=== PATIENT | male | born 1940 | race Caucasian/White ===

== ENCOUNTER 2020-12-11 06:01 | Day surgery (SDC) | payer MEDICARE ==
[2020-12-06 16:14] VITALS: BMI 22.4
[~2020-12-11 06:01] MED LIST: ALPRAZolam 0.25 MG TAB PO PRN; HEPARIN SODIUM,PORCINE 10,000 UNIT in SODIUM CHLORIDE 0.9% 1,000 ML IRRIGATION PRN; HEPARIN SODIUM,PORCINE 2,500 UNIT in SODIUM CHLORIDE 0.9% 250 ML IRRIGATION PRN; SODIUM CHLORIDE 0.9% 1,000 ML in EMPTY BAG 1 BAG IV ONE; ZOLPIDEM 5 MG TAB PO PRN
[2020-12-11] MEDS ORDERED: ALPRAZolam 0.5 MG TAB ONE (06:25)
[2020-12-11] MEDS ORDERED: ASPIRIN 325 MG TAB PO PRN (07:00)
[2020-12-11] MEDS ORDERED: MIDAZOLAM 2 MG/2 ML VIAL IV ONE (08:00)
[2020-12-11] MEDS ORDERED: LIDOCAINE 1% INJ 10MG/ML (20 ML MDV) SQ ONE (08:01)
[2020-12-11] MEDS: HEPARIN SODIUM 1,000 UN/ML (10ML VL) IV ONE ×2 (08:05→08:30)
[2020-12-11] MEDS: fentaNYL (PF) 50 MCG/ML 2 ML AMP IV ONE ×2 (08:08→08:30)
[2020-12-11] MEDS ORDERED: HYDROmorphone 1 MG/ML 1 ML SYRINGE IVP ONE (08:40)
[2020-12-11] MEDS ORDERED: SODIUM CHLORIDE 0.9% 1,000 ML in EMPTY BAG 1 BAG IV SCH (09:15)
[2020-12-11] MEDS ORDERED: NON FORMULARY DRUG (Benralizumab [Fasenra] 30 MG/ML Syringe) SQ SCH (09:15)
[2020-12-11] MEDS ORDERED: CLOPIDOGREL 75 MG TAB PO ONE (09:24)
[2020-12-11] MEDS ORDERED: IOPAMIDOL-250 100ML BTL INTRAARTER ONE (09:24)
[2020-12-11] MEDS ORDERED: hydrALAZINE HCL 20 MG/ML 1 ML VIAL ONE (09:32)
[2020-12-11] MEDS ORDERED: hydrALAZINE HCL 20 MG/ML 1 ML VIAL IVP STA ×2 (09:35→13:03)
[2020-12-11] MEDS ORDERED: HYDROmorphone 1 MG/ML 1 ML SYRINGE ONE (10:02)
[2020-12-11] MEDS ORDERED: HYDROmorphone 1 MG/ML 1 ML SYRINGE IVP STA (10:08)
--- NOTE | 2020-12-11 10:42 | IR ---
Fluoroscopy HISTORY: Pain right leg 12.8 minutes fluoroscopy time supplied to the referring clinician. 336 intraoperative C-arm images d ocument the procedure. See dictated report from cardiology.
[2020-12-11] MEDS ORDERED: MIDAZOLAM 2 MG/2 ML VIAL IV STA (10:55)
--- NOTE | 2020-12-11 17:22 | AN ---
ANGIOGRAPHY REPORT DATE OF SERVICE: 12/11/2020 PERFORMING PHYSICIAN: Darrick Julian MD. PROCEDURE PERFORMED: 1. Atherectomy of the right SFA using the hock device with extraction of significant amount of plaque. 2. Successful stenting of the right SFA using 6 x 60 mm Zilver PTX drug-coated stent with an excellent angiographic results. 3. Intravascular ultrasound (IVUS) of the right SFA. 4. Successful stenting of the right external iliac artery using 8 x 29 mm balloon expandable stent with an excellent angiographic results. 5. Intravascular ultrasound (IVUS) of the right external iliac artery. 6. Right lower extremity angiogram. 7. Left common femoral artery angiogram. 8. Ultrasound-guided access of the left common femoral artery. 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 APPROACH: Left common femoral artery. COMPLICATION: None. LEVEL OF SEDATION: Moderate with sedation length of 74 minutes. PROCEDURE DESCRIPTION: After obtaining an informed consent, the patient was brought to the cardiac lab support technician. The left common femoral artery was cannulated using micropuncture technique and a micropuncture wire passed easily. Then I placed a 70 cm 6-Gambian sheath at the left common femoral artery. I did select the right SFA using 0.035 stiff Glidewire with the backup support of 5- Gambian Omni Flush catheter. Subsequently, the sheath was advanced over the wire and the dilator into the left external iliac artery. I did selective left external iliac artery angiogram before I did balloon angioplasty using 6 mm balloon. Then the sheath was advanced over the dilator and the wire across the lesion into the left common femoral artery. Subsequently, left lower extremity angiogram was performed and identified the lesion at the left SFA. The lesion angiographically was about 70% to 80%. I did intravascular ultrasound which revealed a minimal diameter of 6 mm of the lesion. I did atherectomy of the left SFA using the Hawk device with extraction of significant amount of plaque. Subsequently I did balloon angioplasty using a 5 mm balloon. The following angiogram showed flow-limiting dissection involving the lesion which I decided to cover with a stent so I deployed 6 x 60 mm Zilver PTX drug-coated stent which was dilated using 5 mm balloon with the following angiogram showing excellent angiographic results with good flow across the lesion. Subsequently for the lesion in the left external iliac artery, I did pullback the sheath back and I did deploy the 8 x 29 mm stent. The stent was positioned under fluoroscopy guidance and deployed under fluoroscopic guidance. The following angiogram showed excellent angiographic results. The procedure was completed without any complication. Subsequently, I did exchange my long sheath into short sheath using 0.035 wire and I did selective left common femoral artery angiogram. The procedure was completed without any complication. POSTPROCEDURE MANAGEMENT: 1. Dual anti-platelet therapy. 2. Aggressive cholesterol control. 3. Risk factor modifications. 4. Follow up with the patient. MMODL / IJN: [id number] /
[2020-12-11] MEDS ORDERED: ALBUTEROL NEBULIZED 2.5 MG/3 ML INHALATION PRN (17:39)
[2020-12-11] MEDS ORDERED: HYDROmorphone 0.5 MG/0.5 ML SYRINGE IVP PRN (17:45)
[2020-12-11] MEDS: BUDESONIDE 0.25 MG/2 ML NEBU INHALATION SCH (20:42)
[2020-12-11] MEDS: IPRATROPIUM-ALBUTEROL 3 ML NEB INHALATION SCH (20:46)
[2020-12-12] MEDS: BUDESONIDE 0.25 MG/2 ML NEBU INHALATION SCH (08:22)
[2020-12-12] MEDS: IPRATROPIUM-ALBUTEROL 3 ML NEB INHALATION SCH (08:22)
[2020-12-12] MEDS ORDERED: NON FORMULARY DRUG (Vitamin B Complex [Vitamin B Complex] 1 EACH Capsule) PO SCH (09:00)
[2020-12-12] MEDS ORDERED: DILTIAZEM CD 240 MG CAP.ER.24H PO SCH (09:00)
[2020-12-12] MEDS ORDERED: lisinopriL 20 MG TAB PO SCH (09:00)
[2020-12-12] MEDS ORDERED: MAGNESIUM OXIDE 400 MG TAB PO SCH (09:00)
[2020-12-12] MEDS ORDERED: buPROPion SR 100 MG TABLET.ER PO SCH (09:00)
[2020-12-12] MEDS ORDERED: PRAVASTATIN SODIUM 20 MG TAB PO SCH (09:00)
[2020-12-12] MEDS ORDERED: MONTELUKAST 10 MG TAB PO SCH (09:00)
[2020-12-12] MEDS ORDERED: CLOPIDOGREL 75 MG TAB PO SCH (09:00)
[2020-12-12 09:40] LABS: Basophils % (A) 0 %; Eosinophils % (A) 0 %; HCT 43.3 % (39.0-53.0); HGB 14.6 gm/dL (13.0-17.5); Lymphocytes % (A) 9 %; MCH 30.3 pg (25.0-35.0); MCHC 33.8 g/dL (31.0-37.0); MCV 89.6 fL (80.0-100.0); Mean Platelet Volume 8.1; Monocytes # (A) 0.8 k/uL (0-1.0); Monocytes % (A) 8 %; Neutrophils # (A) 8.8 k/uL (1.3-7.7); Neutrophils % (A) 81 %; Platelet Count 223 k/uL (150-450); RBC 4.83 m/uL (4.30-5.90); RDW 14.5 % (11.5-15.5); WBC 10.8 k/uL (3.8-10.6)
[2020-12-12 10:01] LABS: Calcium 9.4 mg/dL (8.4-10.2); Potassium 4.4 mmol/L (3.5-5.1)
[2020-12-12 10:43] VITALS: RESP 20
--- NOTE | 2020-12-12 11:12 | DS ---
DISCHARGE SUMMARY ADMISSION DATE: December 11, 2020. DISCHARGE DATE: December 12, 2020. BRIEF HISTORY: This is a 79-year-old gentleman who underwent yesterday successful stenting of the right iliac and right SFA with an excellent angiographic results and without any complication from left groin approach. He was seen this morning. The left groin is soft and nontender and without any bruises. He does have good pulses in the right dorsalis pedis artery. The patient is going to be discharged home on dual anti-platelet therapy and I will follow up with the patient next week in the office. MMADAML / IJN: [id number] /
[2020-12-12 12:26] VITALS: BP 129/64; PULSE 94; TEMP 98
== END 2020-12-12 13:38 | disposition home or self-care (01) ==
LOC: CATHCVL 06:01 → 6NMEDSUR 14:05 → 3SCARD 19:22 → CATHCVL 12-12 13:38
PROVIDERS: ATTEND Internal Medicine Interventional Cardiology
DX: I70.263 Atherosclerosis of native arteries of extremities with gangrene, bilateral legs (principal); Z20.822 Contact with and (suspected) exposure to COVID-19; I10 Essential (primary) hypertension; E78.5 Hyperlipidemia, unspecified; Z79.899 Other long term (current) drug therapy; F17.210 Nicotine dependence, cigarettes, uncomplicated
CPT/HCPCS: 37221; 37227; 37252; 37253; 80048; 85025; 87635; C1894 ×3; C1769 ×5; C1725 ×3; C1714; C1753; C2623; C1874; J2250; J0360; S0106; J2001; J3010; J1644; J1170 ×2; Q9966

== ENCOUNTER 2023-04-02 12:09 | Day surgery (SDC) | payer MEDICARE ==
[~2023-04-02 12:09] MED LIST changes: +ASPIRIN 325 MG TAB PO PRN; +HEPARIN SODIUM,PORCINE (1 ML) 2,500 UNIT in SODIUM CHLORIDE 0.9% 250 ML IRRIGATION PRN; -HEPARIN SODIUM,PORCINE 2,500 UNIT in SODIUM CHLORIDE 0.9% 250 ML IRRIGATION PRN
[2023-04-02 12:51] LABS: Basophils % (A) 0 %; Eosinophils # (A) 0.1 k/uL (0-0.7); Eosinophils % (A) 0 %; HCT 49.2 % (39.0-53.0); HGB 16.4 gm/dL (13.0-17.5); Lymphocytes % (A) 5 %; MCH 30.2 pg (25.0-35.0); MCHC 33.4 g/dL (31.0-37.0); MCV 90.4 fL (80.0-100.0); Monocytes # (A) 0.6 k/uL (0-1.0); Monocytes % (A) 4 %; Neutrophils # (A) 15.8 k/uL (1.3-7.7); Neutrophils % (A) 90 %; Platelet Count 279 k/uL (150-450); RBC 5.44 m/uL (4.30-5.90); RDW 14.5 % (11.5-15.5); WBC 17.6 k/uL (3.8-10.6)
[2023-04-02 13:08] LABS: African American GFR (CKD) 82 (>60 ml/min/1.73 sqM); Anion Gap 13 mmol/L; Blood Urea Nitrogen 17 mg/dL (9-20); Calcium 9.8 mg/dL (8.4-10.2); Carbon Dioxide 22 mmol/L (22-30); Chloride 105 mmol/L (98-107); Glucose 139 mg/dL (74-99); Non-African American GFR(CKD) 71 (>60 ml/min/1.73 sqM); Potassium 4.4 mmol/L (3.5-5.1); Sodium 140 mmol/L (137-145)
[2023-04-02] MEDS ORDERED: LIDOCAINE 1% INJ 10MG/ML (20 ML MDV) ONE (13:43)
[2023-04-02] MEDS ORDERED: MIDAZOLAM 2 MG/2 ML VIAL IVP ONE (13:50)
[2023-04-02] MEDS ORDERED: LIDOCAINE 1% INJ 10MG/ML (20 ML MDV) SQ ONE (13:52)
[2023-04-02] MEDS ORDERED: IOPAMIDOL-370 100ML BTL INJ ONE (14:00)
[2023-04-02] MEDS ORDERED: NALOXONE 0.4 MG/ML 1 ML VIAL IVP PRN (14:04)
--- NOTE | 2023-04-02 14:07 | P.PCN ---
Date of Procedure: 04/02/23 Operative Findings: AN ABDOMINAL AORTOGRAM AND BILATERAL LOWER EXTREMITIES RUNOFF PERFORMING PHYSICIAN: Darrick Julian MD PROCEDURE PERFORMED: 1. An abdominal aortogram 2. Bilateral lower extremities runoff 3. Ultrasound-guided access of the right common femoral artery INDICATION: Intermittent claudication COMPLICATION: None LEVEL OF SEDATION: Moderate was sedation length of 10 minutes APPROACH: Right common femoral artery PROCEDURE DESCRIPTION: After obtaining informed consent and explaining the procedure benefits, risks, and complications, the patient was brought to the cardiac optical lab technician. The right groin was prepped and draped in sterile fashion. The right common femoral artery was cannulated using micropuncture technique, under ultrasound guidance. A micropuncture wire was advanced, and the micropuncture sheath was advanced ov er the wire, then the micropuncture sheath was exchanged over an 0.35 wire into a 5-Filipino sheath dilator assembly then the wire and dilator were removed and sheath was flushed. We did an abdominal aortogram and bilateral lower extremities runoff using 5- Filipino pigtail catheter using a power injection. The catheter was initially placed at the level of the renal arteries, and it was pulled into above the bifurcation of the aorta into right and left common iliac arteries. The procedure was completed and there was no complications. SELECTIVE PERIPHERAL ANGIOGRAM: The abdominal aorta: Is angiographically normal The common iliac arteries: Right common iliac artery appeared to have an intermediate disease only. 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
[2023-04-02] MEDS ORDERED: SODIUM CHLORIDE 0.9% 1,000 ML in EMPTY BAG 1 BAG IV SCH (14:15)
[2023-04-03 08:03] VITALS: BP 119/60; PULSE 71; RESP 16; TEMP 98.2
[2023-04-03] MEDS ORDERED: BUDESONIDE 0.25 MG/2 ML NEBU INHALATION PRN (08:21)
[2023-04-03] MEDS ORDERED: ALBUTEROL HFA INHALER INHALATION PRN (08:21)
--- NOTE | 2023-04-03 08:21 | P.DS ---
Providers Attending physician: Darrick Julian Primary care physician: [facility] Course: The patient is an 83-year-old gentleman who underwent yesterday and aortogram with runoff. The patient family requested the patient to stay overnight because he was from [place]. He was seen and evaluated this morning. He is asymptomatic and he is stable. The site looks soft and nontender with no bruises. His WBC is elevated. This is from yesterday. Going to repeat his blood work this morning and if the WBC is within normal limits the patient potentially can be discharged home Plan - Discharge Summary Discharge Rx Participant: No New Discharge Prescriptions: Continue Ipratropium-Albuterol Nebulize [Duoneb 0.5 mg-3 mg/3 ml Soln] 3 ml INHALATION BID Montelukast [Singulair] 10 mg PO DAILY buPROPion HCL [Wellbutrin SR] 200 mg PO DAILY dilTIAZem HCL [Cardizem CD] 240 mg PO DAILY Benralizumab [Fasenra] 30 mg SQ Q60D Pravastatin Sodium [Pravachol] 20 mg PO DAILY Budesonide [Pulmicort] 0.25 mg INHALATION BID PRN PRN Reason: Shortness Of Breath Albuterol Sulfate [Proair Hfa] 1 - 2 puff INHALATION Q6HR PRN PRN Reason: Shortness Of Breath Clopidogrel [Plavix] 75 mg PO DAILY #90 tab Discharge Medication List Albuterol Sulfate [Proair Hfa] 1 - 2 puff INHALATION Q6HR PRN 12/06/20 [History] Benralizumab [Fasenra] 30 mg SQ Q60D 12/06/20 [History] Budesonide [Pulmicort] 0.25 mg INHALATION BID PRN 12/06/20 [History] Ipratropium-Albuterol Nebulize [Duoneb 0.5 mg-3 mg/3 ml Soln] 3 ml INHALATION BID 12/06/20 [History] Montelukast [Singulair] 10 mg PO DAILY 12/06/20 [History] Pravastatin Sodium [Pravachol] 20 mg PO DAILY 12/06/20 [History] buPROPion HCL [Wellbutrin SR] 200 mg PO DAILY 12/06/20 [History] dilTIAZem HCL [Cardizem CD] 240 mg PO DAILY 12/06/20 [History] Clopidogrel [Plavix] 75 mg PO DAILY #90 tab 12/12/20 [Rx] Follow up Appointment(s)/Referral(s): Darrick Julian MD [STAFF PHYSICIAN] - 1 Week (THE OFFICE WILL CALL YOU WITH AN APPOINTMENT DATE AND TIME) Patient Instructions/Handouts: Moderate Sedation (DC), Angiogram (DC) Activity/Diet/Wound Care/Special Instructions: *NO LIFTING, PUSHING, OR PULLING ANYTHING OVER 5 POUNDS FOR 5 DAYS *NO DRIVING FOR 3 DAYS *YOU CAN REMOVE YOUR DRESSING TOMORROW BUT DO NOT SUBMERSE YOUR PUNCTURE SITE IN WATER FOR A FEW DAYS TO PREVENT INFECTION - SO NO TUB BATHS, POOLS, HOT TUBS, DISHES...ETC *ANY SIGNS OF BLEEDING (HARDNESS, SWELLING, OR EXCESSIVE BRUISING) HOLD DIRECT PRESSURE ON YOUR PUNCTURE SITE AND COME TO THE NEAREST EMERGENCY ROOM TO GET YOUR PUNCTURE SITE LOOKED AT - DO NOT DRIVE YOURSELF! EITHER CALL EMS OR HAVE SOMEONE DRIVE YOU!
[2023-04-03] MEDS ORDERED: PRAVASTATIN SODIUM 20 MG TAB PO SCH (09:00)
[2023-04-03] MEDS ORDERED: buPROPion SR 100 MG TABLET.ER PO SCH (09:00)
[2023-04-03] MEDS ORDERED: MONTELUKAST 10 MG TAB PO SCH (09:00)
[2023-04-03] MEDS ORDERED: DILTIAZEM CD 240 MG CAP.ER.24H PO SCH (09:00)
[2023-04-03] MEDS ORDERED: IPRATROPIUM-ALBUTEROL 3 ML NEB INHALATION SCH (09:00)
[2023-04-03] MEDS ORDERED: CLOPIDOGREL 75 MG TAB PO SCH (09:00)
[2023-04-03 09:24] LABS: HCT 46.6 % (39.0-53.0); HGB 15.4 gm/dL (13.0-17.5); MCHC 32.9 g/dL (31.0-37.0); MCV 91.2 fL (80.0-100.0); Mean Platelet Volume 8.6; Platelet Count 190 k/uL (150-450); RBC 5.12 m/uL (4.30-5.90); RDW 14.9 % (11.5-15.5); WBC 16.3 k/uL (3.8-10.6)
[2023-04-03 09:30] LABS: African American GFR (CKD) 83 (>60 ml/min/1.73 sqM); Anion Gap 13 mmol/L; Blood Urea Nitrogen 15 mg/dL (9-20); Carbon Dioxide 17 mmol/L (22-30); Chloride 108 mmol/L (98-107); Glucose 80 mg/dL (74-99); Non-African American GFR(CKD) 72 (>60 ml/min/1.73 sqM); Potassium 4.1 mmol/L (3.5-5.1); Sodium 138 mmol/L (137-145)
== END 2023-04-03 12:05 | disposition home or self-care (01) ==
LOC: CATHCVL 12:09 → 6NMEDSUR 14:13 → CATHCVL 04-03 12:05
PROVIDERS: ATTEND Internal Medicine Interventional Cardiology
DX: I73.9 Peripheral vascular disease, unspecified (principal); Z79.02 Long term (current) use of antithrombotics/antiplatelets; Z79.899 Other long term (current) drug therapy
CPT/HCPCS: 36200; 75625; 75716; 80048 ×2; 85025; 85027; C1769 ×3; C1894 ×2; J2250; S0106; J2001; Q9967